=== PATIENT | female | born 1960 | race Caucasian/White ===

== ENCOUNTER → 2021-04-25 | Outpatient (CLI) | payer BC ==
[2021-04-25 10:41] LABS: Basophils # (A) 0.1 k/uL (0-0.2); Basophils % (A) 1 %; Eosinophils # (A) 0.1 k/uL (0-0.7); Eosinophils % (A) 2 %; HCT 45.4 % (34.0-46.0); HGB 14.4 gm/dL (11.4-16.0); Lymphocytes # (A) 2.1 k/uL (1.0-4.8); Lymphocytes % (A) 25 %; MCH 28.8 pg (25.0-35.0); MCHC 31.6 g/dL (31.0-37.0); Mean Platelet Volume 9.4; Monocytes # (A) 0.4 k/uL (0-1.0); Monocytes % (A) 5 %; Neutrophils # (A) 5.7 k/uL (1.3-7.7); Neutrophils % (A) 67 %; Platelet Count 249 k/uL (150-450); RBC 4.99 m/uL (3.80-5.40); RDW 12.3 % (11.5-15.5); WBC 8.5 k/uL (3.8-10.6)
[2021-04-25 10:51] LABS: Potassium 4.8 mmol/L (3.5-5.1)
== END | disposition home or self-care (01) ==
LOC: LABWHC1 09:54
PROVIDERS: ATTEND Orthopaedic Surgery
DX: M23.91 Unspecified internal derangement of right knee (principal)
CPT/HCPCS: 36415; 80051; 85025; 93005

== ENCOUNTER 2021-05-08 09:37 | Day surgery (SDC) | payer BC, MEDICARE ==
[2021-05-02 10:10] VITALS: BMI 36.1
--- NOTE | 2021-05-07 13:39 | HP ---
HISTORY AND PHYSICAL DATE OF SURGERY: 05/08/2021 Jazmin Dodge is a 60-year-old patient seen with progressive right knee pain. We discussed options for treatment. She elected to proceed with right knee arthroscopy. Consent was obtained. PAST MEDICAL HISTORY: Hypothyroidism, gastroesophageal reflux disease. PAST SURGICAL HISTORY: Appendectomy, breast reconstruction, cervical fusion. DAILY MEDICATIONS: Thyroid, levothyroxine, meloxicam, omeprazole. ALLERGIES: NONE KNOWN. SOCIAL HISTORY: She denies tobacco use. PHYSICAL EVALUATION OF THE RIGHT KNEE: Range of motion is negative 4/5 to 150. There is a Lopez cyst present. There is a mild effusion present. She is tender along the medial joint line. Positive medial Fredy's. Ligaments stable. Hip rotation without pain. Distal neurovascular exam intact. Radiographs of the right knee revealed mild osteoarthritis. MRI right knee revealed effusion and Lopez cyst. IMPRESSION: 1. Internal derangement of right knee with osteochondral tear. 2. Hypothyroidism. 3. Gastroesophageal reflux disease. PLAN: Right knee arthroscopy with partial meniscectomy/chondroplasty and debridement. MMODL / IJN: [id number] /
[~2021-05-08 09:37] MED LIST: DEXAMETHASONE SOD PHOSPHATE 4 MG/ML 1 ML VIAL IV ONE; MIDAZOLAM 2 MG/2 ML VIAL IV PRN; ONDANSETRON 4 MG/2 ML VIAL IVP ONE; SCOPOLAMINE 1.5MG/72HR PATCH TRANSDERM ONE
[2021-05-08] MEDS: LACTATED RINGERS 1,000 ML IV SCH ×2 (10:19→10:26)
[2021-05-08] MEDS ORDERED: LIDOCAINE 1% (10MG/ML) FOR IV START INTRADERMA ONE (10:19)
[2021-05-08] MEDS ORDERED: LIDOCAINE 1% INJ 10MG/ML (20 ML MDV) ONE (10:25)
[2021-05-08] MEDS ORDERED: PROPOFOL 10 MG/ML 20 ML VIAL IV ONE (10:25)
[2021-05-08] MEDS ORDERED: MIDAZOLAM 2 MG/2 ML VIAL ONE (10:25)
[2021-05-08] MEDS ORDERED: fentaNYL (PF) 50 MCG/ML 2 ML AMP ONE (10:25)
[2021-05-08] MEDS ORDERED: BUPIVACAINE (PF) 0.25% 30 ML VIAL INTRAARTIC ONE (10:28)
[2021-05-08 11:09] VITALS: TEMP 97.8
[2021-05-08] MEDS: HYDROmorphone 0.5 MG/0.5 ML SYRINGE IVP PRN ×3 (11:12→11:31)
--- NOTE | 2021-05-08 11:12 | P.OP ---
Date of Procedure: 05/08/21 Preoperative Diagnosis: Internal derangement right knee Postoperative Diagnosis: 1. Tear medial meniscus right knee 2. Reactive synovitis medial, lateral and suprapatellar compartments right knee Procedure(s) Performed: 1. Arthroscopic partial medial meniscectomy right knee 2. Arthroscopic partial synovectomy medial, lateral and suprapatellar compartments right knee Anesthesia: JUMANAA, local Surgeon: Harpreet Ordonez Estimated Blood Loss (ml): 6 Pathology: none sent Condition: stable Disposition: PACU Indications for Procedure: 60-year-old patient seen with progressive right knee pain. After having treatment options discussed, she elected to proceed with arthroscopy. Operative Findings: See description of procedure Description of Procedure: Patient was taken to the operative suite. Patient underwent a general a nesthetic by the department of anesthesia. Patient was given preoperative antibiotics. The right lower extremity was placed in a well-padded arthroscopic leg mendosa. The right leg was prepped and draped in the normal sterile orthopedic fashion. A lateral parapatellar and suprapatellar incision was made. Trochars were inserted. Arthroscopy was initiated. Suprapatellar pouch revealed diffuse thick reactive synovitis. The patellofemoral joint appeared to articulate congruently. There was no chondromalacia present. The scope was guided into the medial gutter. No loose bodies or plica were identified. The scope was then guided into the medial compartment. A medial parapatellar incision was made. Trocar inserted followed by probe. There was a complex tear posterior horn medial meniscus. There were grade 1 chondromalacia changes involving the medial compartment with no significant osteochondral tears. There were multiple small little osteochondral loose fragments/debris within the medial compartment. There was thick reactive synovitis anteriorly. I introduced a motorized shaver and debrided out those small osteochondral fragments the medial compartment. I now performed a partial medial meniscectomy getting down to stable meniscal tissue. I performed a partial synovectomy decompressing the reactive synovitis. The residual meniscus was probed and found to be stable. There was good decompression of the synovitis. Scope and probe were then guided into the intercondylar notch. Cruciates were identified, probed and found to be stable. The scope and probe were then guided into lateral compartment. There were some small osteochondral fragments within lateral compartment. Lateral meniscus appeared stable. There was thick reactive synovitis anteriorly. There was no significant chondromalacia involving lateral compartment. I introduced a motorized shaver and debrided out the small osteochondral fragments. I now performed a partial synovectomy. Shaver was removed. There was good decompression reactive synovitis. There were no more osteochondral fragments present. The scope was in guided back into the suprapatellar compartment. I introduced a motorized shaver into the suprapatellar compartment. I debrided out some piecemeal fragments of meniscus and osteochondral fragments I encountered. I performed a partial synovectomy. Shaver was removed. There was good decompression of synovitis. I took one more look on the entire knee, no residual debris. Instruments were now removed from the joint. The joint was infiltrated with .25% Marcaine. Steri-Strips were applied to the portal sites. Sterile dressings were applied. The patient was placed into a MARIA G hose. No tourniquet was utilized. The patient was awakened, transferred to a bed and taken to recovery stable satisfactory condition.
[2021-05-08] MEDS ORDERED: KETOROLAC 15 MG/ML 1 ML VIAL IVP ONE (11:21)
[2021-05-08] MEDS ORDERED: diphenhydrAMINE 50 MG/ML 1 ML VIAL IVP ONE (11:36)
[2021-05-08] MEDS ORDERED: HYDROcodone/APAP 5-325MG 1 EACH TAB ONE (12:16)
[2021-05-08 12:20] VITALS: RESP 16
[2021-05-08 12:53] VITALS: BP 123/81; PULSE 76
== END 2021-05-08 13:45 | disposition home or self-care (01) ==
LOC: OR 09:37
PROVIDERS: ATTEND Orthopaedic Surgery
DX: M23.203 Derangement of unspecified medial meniscus due to old tear or injury, right knee (principal); M65.861 Other synovitis and tenosynovitis, right lower leg; E03.9 Hypothyroidism, unspecified; K21.9 Gastro-esophageal reflux disease without esophagitis; Z98.1 Arthrodesis status; I69.354 Hemiplegia and hemiparesis following cerebral infarction affecting left non-dominant side; Z98.890 Other specified postprocedural states; Z90.49 Acquired absence of other specified parts of digestive tract; Z79.1 Long term (current) use of non-steroidal anti-inflammatories (NSAID); Z79.890 Hormone replacement therapy; Z79.899 Other long term (current) drug therapy; Z85.3 Personal history of malignant neoplasm of breast; Z88.1 Allergy status to other antibiotic agents
CPT/HCPCS: 29881; 29876; J2250; J1200; J1100; J0690; J2405; J2001; J3010; J1885; J2704; J1170

== ENCOUNTER → 2021-10-29 | Outpatient (CLI) | payer BC ==
[2021-10-29 22:13] LABS: Basophils # (A) 0.04 X 10*3/uL (0.00-0.10); Basophils % (A) 0.6 %; Eosinophils # (A) 0.16 X 10*3/uL (0.04-0.35); Eosinophils % (A) 2.3 %; HCT 43.6 % (37.2-46.3); Immature Grans, Automated 0.1 %; Lymphocytes # (A) 1.81 X 10*3/uL (0.90-5.00); Lymphocytes % (A) 26.3 %; MCH 27.7 pg (27.0-32.0); MCHC 29.8 g/dL (32.0-37.0); MCV 92.8 fL (80.0-97.0); Mean Platelet Volume 12.5 fL (9.5-12.2); Monocytes # (A) 0.47 X 10*3/uL (0.20-1.00); Monocytes % (A) 6.8 %; NRBC Per 100 WBC 0 /100 WBCS (0.0-0.0); Neutrophils % (A) 63.9 %; Platelet Count 239 X 10*3/uL (140-440); RDW 12.8 % (11.5-14.5); WBC 6.89 X 10*3/uL (4.50-10.00)
[2021-10-29 22:39] LABS: Anion Gap 12.1 mmol/L (10.00-18.00); Carbon Dioxide 24.9 mmol/L (20.0-27.5); Potassium 4.7 mmol/L (3.5-5.5)
== END | disposition home or self-care (01) ==
LOC: LABPAT 10:20
PROVIDERS: ATTEND Orthopaedic Surgery
DX: Z01.812 Encounter for preprocedural laboratory examination (principal); M23.91 Unspecified internal derangement of right knee
CPT/HCPCS: 80051; 85025

== ENCOUNTER 2021-11-06 10:04 | Day surgery (SDC) | payer BC ==
--- NOTE | 2021-11-05 15:14 | HP ---
HISTORY AND PHYSICAL REASON FOR ADMISSION: Surgery scheduled for 11/06/2021 HISTORY OF PRESENT ILLNESS: Jazmin Dodge is a 61-year-old patient seen with progressive right knee pain. We discussed options for treatment. She elected to proceed with arthroscopy. Consent is obtained. PAST MEDICAL HISTORY: Hypothyroidism, gastroesophageal reflux disease. PAST SURGICAL HISTORY: Appendectomy, tonsillectomy, mastectomy, cervical fusion, knee arthroscopy. MEDICATIONS: Levothyroxine, Meloxicam, omeprazole. ALLERGIES: None. SOCIAL HISTORY: She denies tobacco use. PHYSICAL EVALUATION OF THE RIGHT KNEE: Range of motion is -2/3-100. There is a Lopez's cyst. Moderate effusion. Tenderness medial joint line. Positive medial Fredy's. Ligaments stable. Hip rotation without pain. Distal neurovascular exam intact. RADIOGRAPHS: Radiographs of the right knee revealed moderate osteoarthritis. MRI right knee revealed an effusion. IMPRESSION: 1. Internal derangement right knee with meniscal tear versus osteochondral tear. 2. Hypothyroidism. 3. Gastroesophageal reflux disease. PLAN: Right knee arthroscopy with partial medial meniscectomy versus chondroplasty and debridement. Surgery scheduled for 11/06/2021. MMODL / IJN: [id number] /
[~2021-11-06 10:04] MED LIST changes: +LACTATED RINGERS 1,000 ML IV SCH; -MIDAZOLAM 2 MG/2 ML VIAL IV PRN; -SCOPOLAMINE 1.5MG/72HR PATCH TRANSDERM ONE
[2021-11-06 10:44] LABS: Glucose,Whole Blood 96 mg/dL (70-110)
[2021-11-06] MEDS ORDERED: FAMOTIDINE 20 MG/2 ML VIAL IV ONE (11:19)
[2021-11-06] MEDS ORDERED: BUPIVACAINE (PF) 0.25% 30 ML VIAL INTRAARTIC ONE ×2 (12:13→12:52)
[2021-11-06] MEDS ORDERED: LIDOCAINE 2% INJ 20 MG/ML (2 ML VIAL) ONE (12:25)
[2021-11-06] MEDS ORDERED: MIDAZOLAM 2 MG/2 ML VIAL ONE (12:25)
[2021-11-06] MEDS ORDERED: SUCCINYLCHOLINE CHLORIDE 200 MG/10 ML VIAL IV ONE (12:25)
[2021-11-06] MEDS ORDERED: PROPOFOL 10 MG/ML 20 ML VIAL IV ONE (12:25)
[2021-11-06] MEDS ORDERED: HYDROmorphone (PF) 1 MG/ML ONE (12:25)
[2021-11-06] MEDS ORDERED: fentaNYL (PF) 50 MCG/ML 2 ML AMP ONE (12:25)
--- NOTE | 2021-11-06 13:10 | P.OP ---
Date of Procedure: 11/06/21 Preoperative Diagnosis: Internal derangement right knee Postoperative Diagnosis: 1. Tear medial and lateral meniscus right knee 2. Grade 4 chondromalacia medial femoral condyle right knee 3. Reactive synovitis medial, lateral and suprapatellar compartments right knee Procedure(s) Performed: 1. Arthroscopic partial medial and lateral meniscectomy right knee 2. Arthroscopic microfracture medial femoral condyle right knee 3. Arthroscopic partial synovectomy medial, lateral and suprapatellar compartments right knee Anesthesia: JUMANAA, local Surgeon: Harpreet Ordonez Estimated Blood Loss (ml): 7 Pathology: none sent Condition: stable Disposition: PACU Indications for Procedure: 61-year-old patient seen with progressive right knee pain. After treatment options were discussed, she elected to proceed with arthroscopy. Operative Findings: See description of procedure Description of Procedure: Patient was taken to the operative suite. Patient underwent a general anesthetic by the department of anesthesia. Patient was given preoperative antibiotics. The right lower extremity was placed in a well-padded arthroscopic leg mendosa. The right leg was prepped and draped in the normal sterile orthopedic fashion. A lateral parapatellar and suprapatellar incision was made. Trochars were inserted. Arthroscopy was initiated. Suprapatellar pouch revealed diffuse thick reactive synovitis. The patellofemoral joint appeared to articulate congruently. There was grade 1/2 chondromalacia of the patella with no osteochondral tears present. The scope was guided into the medial gutter. No loose bodies or plica were identified. The scope was then guided into the medial compartment. A medial parapatellar incision was made. Trocar inserted followed by probe. There was a radial tear posterior horn medial meniscus. There was an area of grade 3/4 chondromalacia medial femoral condyle weightbearing surface with some obvious osteochondral flap tears present. There was some thick reactive synovitis anteriorly. I performed a partial medial meniscectomy getting down to stable meniscal tissue. I performed a chondroplasty of the medial femoral condyle getting down to stable osteochondral tissue. I performed a partial synovectomy decompressing the thick reactive synovitis anteriorly. The residual meniscus was stable. There was good decompression of synovitis. I noted an area of grade 4 chondromalacia along the central weightbearing surface medial femoral condyle measuring approximately 1 cm. I introduced a microfracture awl and I performed a microfracture to that area penetrating the bone with resultant bleeding at the microfracture site. The residual osteochondral surface was again probed and found to be stable. Scope and probe were then guided into the intercondylar notch. Cruciates were identified, probed and found to be stable. The scope and probe were then guided into lateral compartment. There was a radial tear mid body lateral meniscus. There were grade 1 chondromalacia changes lateral compartment. There was some reactive synovitis anteriorly. I performed a partial lateral meniscectomy. I performed a partial synovectomy. The residual meniscus was stable. There was g ood decompression of the synovitis. The scope was in guided back into the suprapatellar compartment. [Suprapatellar compartment documentation] Instruments were now removed from the joint. The joint was infiltrated with .25% Marcaine. Steri-Strips were applied to the portal sites. Sterile dressings were applied. The patient was placed into a MARIA G hose. No tourniquet was utilized. The patient was awakened, transferred to a bed and taken to recovery stable satisfactory condition.
[2021-11-06] MEDS: HYDROmorphone 0.5 MG/0.5 ML SYRINGE IVP PRN ×2 (13:16→13:35)
[2021-11-06 13:23] VITALS: RESP 16; TEMP 96.8
[2021-11-06] MEDS ORDERED: diphenhydrAMINE 50 MG/ML 1 ML VIAL IVP ONE (13:36)
[2021-11-06] MEDS ORDERED: ONDANSETRON 4 MG/2 ML VIAL ONE (14:46)
[2021-11-06] MEDS ORDERED: ONDANSETRON 4 MG/2 ML VIAL IVP ONE (14:49)
[2021-11-06 16:06] VITALS: BP 117/78; PULSE 53
== END 2021-11-06 16:29 | disposition home or self-care (01) ==
LOC: OR 10:04
PROVIDERS: ATTEND Orthopaedic Surgery
DX: M23.203 Derangement of unspecified medial meniscus due to old tear or injury, right knee (principal); M23.200 Derangement of unspecified lateral meniscus due to old tear or injury, right knee; M94.261 Chondromalacia, right knee; M65.861 Other synovitis and tenosynovitis, right lower leg; E03.9 Hypothyroidism, unspecified; K21.9 Gastro-esophageal reflux disease without esophagitis; Z79.1 Long term (current) use of non-steroidal anti-inflammatories (NSAID); Z79.890 Hormone replacement therapy; Z79.899 Other long term (current) drug therapy; Z98.1 Arthrodesis status; Z90.49 Acquired absence of other specified parts of digestive tract; Z98.890 Other specified postprocedural states
CPT/HCPCS: 29880; 29879; J2250; J0330; J1200; J1100; J0690; J2405; J3010; J1170 ×2; J2704; J2001

== ENCOUNTER → 2022-03-16 | Outpatient (CLI) | payer BC ==
[2022-03-16 15:25] LABS: Basophils # (A) 0.04 X 10*3/uL (0.00-0.10); Basophils % (A) 0.5 %; Eosinophils # (A) 0.12 X 10*3/uL (0.04-0.35); Eosinophils % (A) 1.6 %; HCT 44.2 % (37.2-46.3); HGB 13.5 g/dL (12.0-15.0); Immature Grans, Automated 0.4 %; Lymphocytes # (A) 2.05 X 10*3/uL (0.90-5.00); Lymphocytes % (A) 27.2 %; MCH 27.8 pg (27.0-32.0); MCHC 30.5 g/dL (32.0-37.0); MCV 90.9 fL (80.0-97.0); Mean Platelet Volume 12.1 fL (9.5-12.2); Monocytes # (A) 0.54 X 10*3/uL (0.20-1.00); Monocytes % (A) 7.2 %; NRBC Per 100 WBC 0 /100 WBCS (0.0-0.0); Neutrophils # (A) 4.76 X 10*3/uL (1.80-7.70); Neutrophils % (A) 63.1 %; Platelet Count 259 X 10*3/uL (140-440); RBC 4.86 X 10*6/uL (4.10-5.20); RDW 12.3 % (11.5-14.5); WBC 7.54 X 10*3/uL (4.50-10.00)
[2022-03-16 15:40] LABS: Appearance,Urine Clear (Clear); Bilirubin,Urine Negative (Negative); Blood,Urine Negative (Negative); Color,Urine Yellow (Yellow); Ketones,Urine Negative (Negative); Nitrite,Urine Negative (Negative); Specific Gravity,Urine 1.016 (1.001-1.030); Urobilinogen,Urine 0.2 (0.2,1.0)
[2022-03-16 15:43] LABS: African American GFR (CKD) 71.4 (60.0-200.0); BUN/Creat Ratio 17.4 Ratio (12.00-20.00); Blood Urea Nitrogen 17.4 mg/dL (9.0-27.0); Calcium 9.6 mg/dL (8.7-10.3); Non-African American GFR(CKD) 61.6 (60.0-200.0); Potassium 4.7 mmol/L (3.5-5.5)
== END | disposition home or self-care (01) ==
LOC: LABPAT 09:43
PROVIDERS: ATTEND Urology
DX: Z01.812 Encounter for preprocedural laboratory examination (principal); N39.3 Stress incontinence (female) (male); R31.29 Other microscopic hematuria
CPT/HCPCS: 80048; 81003; 85025; 87086

== ENCOUNTER 2022-03-23 06:05 | Day surgery (SDC) | payer BC ==
--- NOTE | 2022-03-22 09:13 | P.HPIHPCON ---
History of Present Illness H&P Date: 03/22/22 Chief Complaint: S This is a 61 yo female with hx of ELISA, option of kegel exercise, miduretheral sling and bulking agent was discussed with her. Risk and benefit of each approach was discussed in details. She agreed to proceed with transobturator mid urethral sling. discussed risk of bleeding, infection, persistent incontinence and urinary retention. Discussed also that I would be using mesh. discussed risk of mesh erosion through the bladder urethra and vagina. she understood all the risk and agreed to proceed Consent for Procedure: I have explained the operation/procedure to the patient, including the risks, benefits, side effects, alternative therapies (including not receiving the proposed treatment or service), the likelihood of the patient achieving his/her goals, and potential recuperation problems for the procedure/sedation/analgesia, as well as any blood products, if indicated. I also explained to the patient the risks, benefits and side effects of the alternatives, as well as the risks related to not receiving the proposed procedure, care, treatment, or services. Past Medical History Past Medical History: Cancer, CVA/TIA, Fibromyalgia, Osteoarthritis (OA), Thyroid Disorder Additional Past Medical History / Comment(s): cysts left kidney-dr. martin, thought had celiac but biopsy was neg., told had TIA per MRI @age of 50-left side is weaker, hx. of right breast cancer 2010 History of Any Multi-Drug Resistant Organisms: None Reported Past Surgical History: Orthopedic Surgery, Tonsillectomy, Tubal Ligation Additional Past Surgical History / Comment(s): arthroscopy right knee x2, varicose vein surg., C4-C5 fusion, bilateral mastectomy w/reconstruction Past Anesthesia/Blood Transfusion Reactions: Postoperative Nausea & Vomiting (PONV) Additional Past Anesthesia/Blood Transfusion Reaction / Comment(s): sometimes hard to wake up, last surg. had PONV Smoking Status: Never smoker Medications and Allergies Home Medications Medication Instructions Recorded Confirmed Type Ascorbic Acid [Vitamin C] 500 mg PO DAILY 11/04/21 03/19/22 History Cholecalciferol [Vitamin D3 (125 125 mcg PO DAILY 11/04/21 03/19/22 History Mcg = 5000 Iu)] Diclofenac Sodium Gel [Voltaren 1 applic TOPICAL DAILY 11/04/21 03/19/22 History Gel] Ergocalciferol [Vitamin D2 (1250 1,250 mcg PO TU 11/04/21 03/19/22 History Mcg = 58679 Iu)] L.acidoph,Paracasei, B.lactis 1 cap PO DAILY 11/04/21 03/19/22 History [Probiotic] Levothyroxine Sodium [Synthroid] 50 mcg PO QAM 11/04/21 03/19/22 History Lidocaine 5% Patch [Lidoderm 5% 1 patch TOPICAL BID 11/04/21 03/19/22 History Patch] Thyroid, Pork [[place] Thyroid] 30 mg PO QAM 11/04/21 03/19/22 History traMADol HCL 50 mg PO Q6H PRN 11/04/21 03/19/22 History Albuterol Inhaler [Ventolin Hfa 1 - 2 puff INHALATION Q6H PRN 03/19/22 03/19/22 History Inhaler] Cyclobenzaprine [Flexeril] 5 mg PO TID PRN 03/19/22 03/19/22 History Allergies Allergy/AdvReac Type Severity Reaction Status Date / Time doxycycline Allergy Swelling Verified 03/19/22 12:31 BURBUR Allergy Rash/Hives, Uncoded 03/19/22 12:31 THROAT SWELLING FLU VACCINE AdvReac Dyspnea, Uncoded 03/19/22 12:31 PNEUMONIA Surgical - Exam - General no distress, no pain - Respiratory normal expansion, normal respiratory effort - Abdomen Abdomen: soft, non tender Assessment and Plan Assessment: OR for cystoscopy and mid urethral sling
[2022-03-23] MEDS ORDERED: DEXAMETHASONE SOD PHOSPHATE 4 MG/ML 1 ML VIAL IV ONE (06:17)
[2022-03-23] MEDS ORDERED: ONDANSETRON 4 MG/2 ML VIAL IVP ONE (06:17)
[2022-03-23] MEDS ORDERED: MIDAZOLAM 2 MG/2 ML VIAL IV PRN (06:17)
[2022-03-23] MEDS ORDERED: SCOPOLAMINE 1 MG/72 HR PATCH TRANSDERM ONE (06:17)
[2022-03-23] MEDS: LACTATED RINGERS 1,000 ML IV SCH ×2 (06:27→12:38)
[2022-03-23] MEDS ORDERED: HYDROmorphone 0.5 MG/0.5 ML SYRINGE IVP PRN (07:00)
[2022-03-23] MEDS ORDERED: LIDOCAINE 1%-EPI 1:100,000 20 ML VIAL SQ ONE ×2 (07:51)
[2022-03-23] MEDS ORDERED: ALBUTEROL NEBULIZED 2.5 MG/3 ML INHALATION PRN (08:44)
--- NOTE | 2022-03-23 08:45 | P.OP ---
Date of Procedure: 03/23/22 Preoperative Diagnosis: Stress urinary incontinence Postoperative Diagnosis: Same Procedure(s) Performed: Cystoscopy, transobturator sling Implants: Obtyrux mesh sling Anesthesia: JUMANAA Surgeon: Jorge Santana Estimated Blood Loss (ml): 25 Pathology: none sent Condition: stable Disposition: PACU Indications for Procedure: This is a 61 yo female with hx of ELISA, option of kegel exercise, miduretheral sling and bulking agent was discussed with her. Risk and benefit of each approach was discussed in details. She agreed to proceed with transobturator mid urethral sling. discussed risk of bleeding, infection, persistent incontinence and urinary retention. Discussed also that I would be using mesh. discussed risk of mesh erosion through the bladder urethra and vagina. she understood all the risk and agreed to proceed Description of Procedure: The patient was taken to the operating room and placed in the dorsal lithotomy position, with her legs supported in Julian stirrups. The perineum, lower abdomen, and vagina were prepped and draped sterilely. A 16-Wolof Arteaga catheter was placed. Silk sutures were placed to retract the labia laterally on each side. 0.5% Marcaine with epinephrine was injected submucosally within the anterior vaginal wall, over the urethra. The scalpel was then used to make an anterior midline vaginal incision over the urethra. Metzenbaum scissors were used to dissect laterally within the submucosal plane, to the inferior pubic ramus. The scalpel was used to make bilateral groin incisions at the level of the clitoris. Subcutaneous tissues were spread with a hemostat. Each of the helical needles were passed through the respective groin incision, and turned such that the needle tip wrapped around the pubis. The needle tips were guided digitally into the vaginal incision. The Obtryx graft, which had been previously soaked in antibiotic solution, was secured to the needle tips in the standard fashion. The needles were then withdrawn, and the position of the graft was adjusted such that it overlie the mid urethra, as desired. With a hemostat placed between the graft and the urethra to prevent tension of the graft over the urethra, the plastic sheath was removed from the ends of the graft. The ends of the graft were cut beneath the skin incisions, and these incisions were closed using 4-0 Vicryl suture in a subcuticular fashion. Hemostasis within the vaginal incision was adequate, and the vaginal incision was closed using 2-0 Vicryl suture in a running fashion. Cystoscopy was performed. The 30 lens was used to introduce the 22-Wolof Storz cystoscopic sheath through the urethra and into the bladder under direct vision. The urethra and bladder were unremarkable. There was no evidence of perforation. Both ureteral orifices were of normal anatomic location and configuration, and clear urine effluxed from both. No tumors or foreign bodies were seen. The cystoscope was removed, and the Arteaga catheter was replaced into the bladder. Vaginal packing was placed. All sponge and needle counts were correct. The patient tolerated the procedure well was taken to the recovery room in stable condition.
[2022-03-23] MEDS: CYCLOBENZAPRINE 5 MG TAB PO PRN (14:07)
[2022-03-23 15:05] VITALS: PULSE 68
[2022-03-23] MEDS: DEXTROSE 5%-0.45% NACL 1,000 ML IV SCH (15:36)
[2022-03-23] MEDS: HEPARIN SODIUM,PORCINE/PF 5,000 UNIT/0.5 ML SYRINGE SQ SCH ×2 (16:32→23:18)
[2022-03-23] MEDS: KETOROLAC 15 MG/ML 1 ML VIAL IVP PRN (18:31)
[2022-03-24] MEDS: KETOROLAC 15 MG/ML 1 ML VIAL IVP PRN ×2 (00:43→10:45)
[2022-03-24] MEDS: CYCLOBENZAPRINE 5 MG TAB PO PRN (05:30)
[2022-03-24] MEDS: DEXTROSE 5%-0.45% NACL 1,000 ML IV SCH (05:31)
[2022-03-24] MEDS ORDERED: LEVOTHYROXINE 50 MCG TAB PO SCH (06:30)
[2022-03-24] MEDS: HEPARIN SODIUM,PORCINE/PF 5,000 UNIT/0.5 ML SYRINGE SQ SCH (07:49)
[2022-03-24 08:26] VITALS: BP 135/72; RESP 16; TEMP 98.2
--- NOTE | 2022-03-24 08:28 | P.DS ---
Providers Expected date of discharge: 03/24/22 Attending physician: Jorge Satnana MD Primary care physician: Henry Wright MD Hospital Course: On the day of admission, the patient underwent an uncomplicated TOT sling. The perioperative course was unremarkable. The patient remained afebrile with stable vital signs. On the first postoperative day, the Arteaga catheter was removed and the patient was able to void without difficulty. Her incisions were clean and dry. She denied spotting. Her only complaint was left groin/hip discomfort. Procedures: TOT Sling on 03/23/2022 Patient Condition at Discharge: Good Plan - Discharge Summary Discharge Rx Participant: Yes New Discharge Prescriptions: New Cephalexin [Keflex] 500 mg PO Q8HR 3 Days #9 cap Ketorolac [Toradol] 10 mg PO Q6HR PRN #10 tab PRN Reason: Pain No Action Levothyroxine Sodium [Synthroid] 50 mcg PO QAM Thyroid, Pork [[place] Thyroid] 30 mg PO QAM Albuterol Inhaler [Ventolin Hfa Inhaler] 1 - 2 puff INHALATION Q6H PRN PRN Reason: Shortness Of Breath Ascorbic Acid [Vitamin C] 500 mg PO DAILY Cholecalciferol [Vitamin D3 (125 Mcg = 5000 Iu)] 125 mcg PO DAILY Diclofenac Sodium Gel [Voltaren Gel] 1 applic TOPICAL DAILY Ergocalciferol [Vitamin D2 (1250 Mcg = 82825 Iu)] 1,250 mcg PO TU L.acidoph,Paracasei, B.lactis [Probiotic] 1 cap PO DAILY Lidocaine 5% Patch [Lidoderm 5% Patch] 1 patch TOPICAL BID traMADol HCL 50 mg PO Q6H PRN PRN Reason: Pain Cyclobenzaprine [Flexeril] 5 mg PO TID PRN PRN Reason: Muscle Spasm Discharge Medication List Ascorbic Acid [Vitamin C] 500 mg PO DAILY 11/04/21 [History] Cholecalciferol [Vitamin D3 (125 Mcg = 5000 Iu)] 125 mcg PO DAILY 11/04/21 [History] Diclofenac Sodium Gel [Voltaren Gel] 1 applic TOPICAL DAILY 11/04/21 [History] Ergocalciferol [Vitamin D2 (1250 Mcg = 81556 Iu)] 1,250 mcg PO TU 11/04/21 [History] L.acidoph,Paracasei, B.lactis [Probiotic] 1 cap PO DAILY 11/04/21 [History] Levothyroxine Sodium [Synthroid] 50 mcg PO QAM 11/04/21 [History] Lidocaine 5% Patch [Lidoderm 5% Patch] 1 patch TOPICAL BID 11/04/21 [History] Thyroid, Pork [[place] Thyroid] 30 mg PO QAM 11/04/21 [History] traMADol HCL 50 mg PO Q6H PRN 11/04/21 [History] Albuterol Inhaler [Ventolin Hfa Inhaler] 1 - 2 puff INHALATION Q6H PRN 03/19/22 [History] Cyclobenzaprine [Flexeril] 5 mg PO TID PRN 03/19/22 [History] Cephalexin [Keflex] 500 mg PO Q8HR 3 Days #9 cap 03/24/22 [Rx] Ketorolac [Toradol] 10 mg PO Q6HR PRN #10 tab 03/24/22 [Rx] Activity/Diet/Wound Care/Special Instructions: Diet as tolerated. No lifting or strenuous activity. No intercourse. May shower. Discharge Disposition: HOME SELF-CARE
[2022-03-24] MEDS ORDERED: THYROID, PORK 30 MG TAB PO SCH (09:00)
== END 2022-03-24 15:10 | disposition home or self-care (01) ==
LOC: OR 06:05 → 5NMEDONC 08:47 → 4FBP 14:50 → OR 03-24 15:10
PROVIDERS: ATTEND Urology
DX: N39.3 Stress incontinence (female) (male) (principal); M19.90 Unspecified osteoarthritis, unspecified site; E07.9 Disorder of thyroid, unspecified; Z90.89 Acquired absence of other organs; Z86.73 Personal history of transient ischemic attack (TIA), and cerebral infarction without residual deficits; Z98.51 Tubal ligation status; Z98.1 Arthrodesis status; Z79.899 Other long term (current) drug therapy; Z88.1 Allergy status to other antibiotic agents
CPT/HCPCS: 57288; C1771; J1100; J0690; J2405; J1885 ×2; J1170; J1644 ×2